=== PATIENT | male | born 1975 | race Caucasian/White ===

== ENCOUNTER 2017-11-05 03:48 | Emergency (ER) | payer OTHER ==
[2017-11-05] MEDS ORDERED: TORAdol 30 mg Injection IV ONE (04:28)
[2017-11-05] MEDS ORDERED: Sodium Chloride 0.9% 1000 ML 1,000 ML IV STA (04:28)
[2017-11-05] MEDS ORDERED: Flomax 0.4 MG PO ONE (04:29)
[2017-11-05] MEDS ORDERED: Sodium Chloride 0.9% 1000 ML 1,000 ML ONE (04:32)
[2017-11-05] MEDS ORDERED: TORAdol 30 mg Injection ONE (04:32)
[2017-11-05] MEDS ORDERED: Flomax 0.4 MG ONE (04:32)
[2017-11-05 04:33] LABS: BASOPHIL % 0.1 % (0.0-0.4); Basophil (Absolute #) 0.01 (0-0.4); Eosinophil % 0.1 % (0.00-5.0); Eosinophil (Absolute #) 0.01 (0-0.5); Granulocyte Absolute (ANC) 10.98 (1.4-6.9); Granulocytes % 84.1 % (36.0-66.0); Hematocrit 41.1 % (42-50); Hemoglobin 13.5 gm/dl (12.5-18.0); Lymphocyte (Absolute #) 1.26 (1.0-4.6); Lymphocytes % 9.7 % (24.0-44.0); Mean Cell Volume 88.2 fl (78-100); Mean Corpuscular Hgb Concent. 32.8 g/dl (32-36); Mean Platelet Volume 9.5 fl (6-9.5); Monocyte (Absolute #) 0.78 (0.0-1.3); Platelet Count 377 K/mm3 (150-450); Red Blood Count 4.66 M/mm3 (4.1-5.6); Red Cell Distribution Width 14.9 % (11.5-14.0)
--- NOTE | 2017-11-05 04:35 | ERPHSYRPT ---
- History of Present Illness Time Seen by Provider: 11/05/17 04:20 Source: patient Exam Limitations: clinical condition Patient Subjective Stated Complaint: pt states he was trying to have a bowel movement at approx midnight this pm and started having pain in his testicles and left lower back; pt has gotten increasingly worse since onset; pt also states he is having urinary hesitency, retention, and burning with urination since onset. Triage Nursing Assessment: pt a&o x3; skin p, w, & d; no other distress noted at this time; ambulated to room per self. Physician History: PATIENT STATES WHILE ATTEMPTING TO HAVE BOWEL MOVEMENT ONSET OF LEFT FLANK PAIN RADIATES TO LEFT TESTICLES ASSOCIATED WITH HESITANCY, FREQUENCY, URGENCY AND OCCASIONAL DYSURIA. DENIES URETHRAL DISCHARGE, FEVER, CHILLS NAUSEA EMESIS. Timing/Duration: hour(s) Activites at Onset: none Quality: sharpness, throbbing Onset Location: left flank, left testicle Pain Radiation: left flank, scrotal Severity of Pain-Max: moderate Severity of Pain-Current: moderate Modifying Factors: Improves With: urinating Associated Symptoms: abdominal pain Prior abdominal problems: none Sexual intercourse history: non-contributory Allergies/Adverse Reactions: No Known Drug Allergies Allergy (Verified 11/05/17 04:09) Hx Tetanus, Diphtheria Vaccination/Date Given: Yes Hx Influenza Vaccination/Date Given: No Hx Pneumococcal Vaccination/Date Given: No Immunizations Up to Date: No - Past Medical History Pertinent Past Medical History: Yes GI Medical History: Hernia - Past Surgical History Past Surgical History: Yes Gastrointestinal: Hernia Repair - Social History Smoking Status: Current every day smoker How long have you smoked: 24 years Exposure to second hand smoke: Yes Drug Use: marijuana Patient Lives Alone: Yes - Review of Systems Constitutional: No Fever, No Chills Eyes: No Symptoms Ears, Nose, & Throat: No Symptoms Respiratory: No Symptoms, No Cough, No Dyspnea Cardiac: No Symptoms, No Chest Pain, No Edema, No Syncope Abdominal/Gastrointestinal: Abdominal Pain, No Nausea, No Vomiting, No Diarrhea Genitourinary Symptoms: Frequency, Hesitancy, Urgency, Flank Pain, Testicle Pain , No Dysuria Musculoskeletal: No Symptoms, No Back Pain, No Neck Pain Skin: No Symptoms, No Rash Neurological: No Dizziness, No Focal Weakness, No Sensory Changes Psychological: No Symptoms Endocrine: No Symptoms All Other Systems: Reviewed and Negative - Nursing Vital Signs Nursing Vital Signs: Initial Vital Signs Temperature 97.9 F 11/05/17 03:56 Pulse Rate 70 11/05/17 03:56 Respiratory Rate 18 11/05/17 03:56 Blood Pressure 144/97 11/05/17 03:56 O2 Sat by Pulse Oximetry 100 11/05/17 03:56 Pain Scale Pain Intensity 4 - Physical Exam General Appearance: no apparent distress, alert Eye Exam: PERRL/EOMI Ears, Nose, Throat Exam: pharynx normal, moist mucous membranes Neck Exam: normal inspection, supple Respiratory Exam: normal breath sounds, lungs clear Cardiovascular Exam: regular rate/rhythm, No edema Gastrointestinal/Abdomen Exam: soft, normal bowel sounds, No tenderness Male Genital Exam: normal genitalia (TESTES NONTENDER, NO EPIPIDYMAL TENDERNESS ) Back Exam: normal inspection, CVA tenderness (MODERATE LEFT CVA TENDERNESS) Extremity Exam: normal inspection, normal range of motion, No pedal edema Neurologic Exam: alert, oriented x 3, cooperative, sensation nml, No motor deficits Skin Exam: normal color, warm, dry, No rash SpO2 Interpretation: normal SpO2: 100 Oxygen Delivery: Room Air - CT Exams Abdomen/Pelvis CT Interpretation: Tele-radiologist Report (THERE IS A MILD LEFT HYDRONEPHROSIS AND HYDROURETER TO THE LELVEL OF 3MM STONE IN THE DISTAL LEFT URETER. THERE IS ADDITIONAL NONOBSTRUCTIONG LEFT NEPHRLITHIASIS) Ordered Tests: Active Orders 24 hr Category Date Time Status IV Insertion STAT Care 11/05/17 04:28 Active ABDOMEN AND PELVIS W/0 CONTRAS [CT] Stat Exams 11/05/17 04:28 Taken BMP Stat Lab 11/05/17 04:30 Completed CBC W DIFF Stat Lab 11/05/17 04:30 Completed CULTURE,URINE Stat Lab 11/05/17 04:31 Received UA W/ MICROSCOPIC Stat Lab 11/05/17 04:31 Completed Medication Summary Discontinued Medications Generic Name Dose Route Start Last Admin Trade Name Freq PRN Reason Stop Dose Admin Hydromorphone HCl 1 mg 11/05/17 04:38 11/05/17 04:44 Hydromorphone 1 Mg/Ml Ampule IV 11/05/17 04:39 1 mg STAT ONE Administration Hydromorphone HCl Confirm 11/05/17 04:43 Hydromorphone 1 Mg/Ml Ampule Administered 11/05/17 04:44 Dose 1 mg .ROUTE .STK-MED ONE Sodium Chloride 1,000 mls @ 999 mls/hr 11/05/17 04:28 11/05/17 06:00 Sodium Chloride 0.9% 1000 Ml IV 11/05/17 05:28 Infused .Q1H1M STA Infusion Sodium Chloride Confirm 11/05/17 04:32 Sodium Chloride 0.9% 1000 Ml Administered 11/05/17 04:33 Dose 1,000 mls @ ud .ROUTE .STK-MED ONE Ketorolac Tromethamine 30 mg 11/05/17 04:28 11/05/17 04:34 Toradol 30 Mg Injection IV 11/05/17 04:29 30 mg STAT ONE Administration Ketorolac Tromethamine Confirm 11/05/17 04:32 Toradol 30 Mg Injection Administered 11/05/17 04:33 Dose 30 mg .ROUTE .STK-MED ONE Tamsulosin HCl 0.4 mg 11/05/17 04:29 11/05/17 04:34 Flomax 0.4 Mg PO 11/05/17 04:30 0.4 mg STAT ONE Administration Tamsulosin HCl Confirm 11/05/17 04:32 Flomax 0.4 Mg Administered 11/05/17 04:33 Dose 0.4 mg .ROUTE .STK-MED ONE Lab/Rad Data: Laboratory Result Diagrams 11/05/17 04:30 11/05/17 04:30 Laboratory Results 11/05/17 11/05/17 11/05/17 Range/Units 04:31 04:30 04:30 WBC 13.0 H (4.0-10.5) K/mm3 RBC 4.66 (4.1-5.6) M/mm3 Hgb 13.5 (12.5-18.0) gm/dl Hct 41.1 L (42-50) % MCV 88.2 (78-100) fl MCH 29.0 (26-32) pg MCHC 32.8 (32-36) g/dl RDW 14.9 H (11.5-14.0) % Plt Count 377 (150-450) K/mm3 MPV 9.5 (6-9.5) fl Gran % 84.1 H (36.0-66.0) % Eos # (Auto) 0.01 (0-0.5) Absolute Lymphs (auto) 1.26 (1.0-4.6) Absolute Monos (auto) 0.78 (0.0-1.3) Lymphocytes % 9.7 L (24.0-44.0) % Monocytes % 6.0 (0.0-12.0) % Eosinophils % 0.1 (0.00-5.0) % Basophils % 0.1 (0.0-0.4) % Absolute Granulocytes 10.98 H (1.4-6.9) Basophils # 0.01 (0-0.4) Sodium 141 (137-145) mmol/L Potassium 4.2 (3.5-5.1) mmol/L Chloride 104 (98-107) mmol/L Carbon Dioxide 28 (22-30) mmol/L Anion Gap 13.4 (5-15) MEQ/L BUN 18 (9-20) mg/dL Creatinine 0.95 (0.66-1.25) mg/dL Estimated GFR > 60.0 ML/MIN Glucose 128 H (74-106) mg/dL Calcium 9.2 (8.4-10.2) mg/dL Ur Collection Type VOID Urine Color YELLOW (YELLOW) Urine Appearance CLEAR (CLEAR) Urine pH 7.0 (5-6) Ur Specific [place] 1.020 (1.005-1.025) Urine Protein TRACE (Negative) Urine Ketones MODERATE (NEGATIVE) Urine Blood 250 (0-5) Osman/ul Urine Nitrite NEGATIVE (NEGATIVE) Urine Bilirubin NEGATIVE (NEGATIVE) Urine Urobilinogen NORMAL (0-1) mg/dL Ur Leukocyte Esterase NEGATIVE (NEGATIVE) Urine Microscopic RBC 25-50 (0-2) /HPF Urine Microscopic WBC 2-5 (0-5) /HPF Ur Epithelial Cells MODERATE (FEW) /HPF Urine Bacteria FEW (NEGATIVE) /HPF Urine Mucus MODERATE (NEGATIVE) /HPF Urine Culture Reflexed YES (NO) Urine Glucose NEGATIVE (NEGATIVE) mg/dL Specimen Received 11/04/17 0430 - Progress Progress: improved, pain not gone completely Progress Note: 11/05/17 04:36 ADMINISTERED IV NORMAL SALINE 1000 ML/HR BOLUS, FLOMAX 0.4MG ORALLY, ZOFRAN 4MG , TORADOL 30MG, DILAUDID 1MG IV Counseled pt/family regarding: lab results, diagnosis, need for follow-up, rad results - Departure Time of Disposition: 06:20 Departure Disposition: Home Clinical Impression: LEFT DISTAL URETER CALCULUS Condition: Stable Critical Care Time: No Referrals: DOCTOR,NO FAMILY [Primary Care Provider] - Additional Instructions: USE A STRAINER TO STRAIN YOUR URINE FOR [address] BRUMFIELD TODAY FOR FOLLOWUP APPOINTMENT. FLOMAX 0.4MG AT BEDTIME FOR 10 DAYS. NORCO 10/325 EVERY 6 HOURS FOR SEVERE PAIN DISCOMFORT. TORADOL 10MG EVERY 6 HOURS FOR MILD TO MODERATE PAIN. DRINK PLENTY OF FLUIDS. OBTAIN A PRIMARY HEALTH CARE PROVIDER. Prescriptions: Hydrocodone/APAP 10/325 mg [[place] 10/325 MG Tablet] 1 tab PO Q6H PRN PRN # 12 tablet MDD 4 PRN Reason: Pain Ketorolac Tromethamine [Toradol] 10 mg PO Q6H PRN PRN #20 tablet PRN Reason: Pain Tamsulosin HCl 0.4 mg [Flomax 0.4 MG] 0.4 mg PO DAILY #10 cap
[2017-11-05] MEDS ORDERED: Hydromorphone 1 mg/ml Ampule IV ONE (04:38)
[2017-11-05 04:41] LABS: Appearance CLEAR (CLEAR); Bilirubin NEGATIVE (NEGATIVE); Blood 250 Ery/ul (0-5); Glucose NEGATIVE (NEGATIVE); Ketones MODERATE (NEGATIVE); Leukocyte Esterase NEGATIVE (NEGATIVE); Nitrite NEGATIVE (NEGATIVE); Protein,Urine Dip TRACE (Negative); Urobilinogen NORMAL mg/dL (0-1)
[2017-11-05 04:43] LABS: Bacteria FEW /HPF (NEGATIVE); Epithelial Cells MODERATE /HPF (FEW); Mucus MODERATE /HPF (NEGATIVE); RBC 25-50 /HPF (0-2)
[2017-11-05] MEDS ORDERED: Hydromorphone 1 mg/ml Ampule ONE (04:43)
[2017-11-05 04:50] LABS: ANION GAP 13.4 MEQ/L (5-15); BLOOD UREA NITROGEN 18 mg/dL (9-20); CHLORIDE 104 mmol/L (98-107); Calcium 9.2 mg/dL (8.4-10.2); Carbon Dioxide 28 mmol/L (22-30); Creatinine 1 0.95 mg/dL (0.66-1.25); Glucose 128 mg/dL (74-106); Potassium 4.2 mmol/L (3.5-5.1); SODIUM 141 mmol/L (137-145)
[2017-11-05 06:32] VITALS: BP 104/67; PULSE 84; O2SAT 96
--- NOTE | 2017-11-05 08:54 | XRAY ---
Indication: Left flank pain. Difficulty urinating. Multiple contiguous axial images obtained through the abdomen and pelvis without contrast using renal stone protocol. Comparison: None. Lung bases demonstrates mild bibasilar dependent atelectasis and tiny right base calcified granuloma. Heart is not enlarged. Small hiatal hernia. 3 mm left posterior urinary bladder calculus. Left ureter is mildly prominent along with mild hydronephrosis and minimal perinephric stranding consistent with recent passage of set calculus. Additional left renal punctate calculus. No calculus or evidence for obstructive uropathy in the right system. Noncontrasted stomach and bowel loops appear nonobstructed. Normal appendix. Mild sigmoid diverticulosis. 3-4 mm peripheral right lobe hepatic cyst. Remaining liver, gallbladder, pancreas, spleen, adrenal glands, and bladder appear unremarkable for noncontrast exam. Mild aortoiliac calcifications without AAA. Osseous structures intact with mild degenerative changes throughout the spine. Tiny fatty umbilical and small fatty right inguinal hernias. Impression: 1. 3 mm urinary bladder calculus with mild left-sided hydronephrosis and minimal ureteral prominence from recent passage. Additional left renal micro-calculus. 2. Sigmoid diverticulosis without diverticulitis and small hiatal hernia. 3. Incidental fatty umbilical and fatty right inguinal hernias. Comment: Preliminary interpretation was made by [facility]. No critical discrepancy. CT DI 23.68
== END 2017-11-05 06:30 | disposition home or self-care (01) ==
LOC: ED 03:48
DX: N20.1 Calculus of ureter (principal); N50.812 Left testicular pain; M54.5 Low back pain; R39.11 Hesitancy of micturition; R33.9 Retention of urine, unspecified; R30.0 Dysuria; R35.0 Frequency of micturition; R10.9 Unspecified abdominal pain
CPT/HCPCS: 36000; 36415; 74176; 80048; 81000; 85025; 87086; 96360; 96374; 96375; 99284; J1170; J1885; A9270-GY